=== PATIENT | male | born 2000 | race Caucasian/White ===

== ENCOUNTER 2020-09-05 11:24 | Emergency (ER) | payer OTHER ==
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
[2020-09-05] MEDS ORDERED: Ketorolac 60 MG/2 ML SDV IM ONE (12:27)
--- NOTE | 2020-09-05 12:44 | CR ---
INDICATION: Trauma with pain. TECHNIQUE: Three views of the left 5th finger COMPARISON: None FINDINGS: Three views of the left 5th finger reveal no acute fracture, malalignment/dislocation or acute osseous abnormality. There is ventral and lateral angulation of the distal metacarpal bone compatible with an old healed Boxer`s" type fracture. IMPRESSION: 1. No acute abnormality is evident. 2. Old healed 5th metacarpal bone fracture. Dictated by Hunter Ramírez MD @ Sep 05 2020 12:29PM Signed by Dr. Hunter Ramírez @ Sep 05 2020 12:42PM
== END 2020-09-05 13:05 ==
LOC: MW.ED 11:24
DX: S63.617A Unspecified sprain of left little finger, initial encounter (principal); Z72.0 Tobacco use; W22.8XXA Striking against or struck by other objects, initial encounter
CPT/HCPCS: 73140; 96372; 99283; J1885